=== PATIENT | female | born 1990 | race Two or more races ===

== ENCOUNTER 2020-07-07 12:10 | Inpatient (IN) | payer OTHER ==
[~2020-07-07] VITALS: Ht 154.9 cm; Wt 3.2 kg
[2020-07-07] MEDS ORDERED: PRENATAL TABLE1 EAC3 PO (14:42)
== END 2020-07-10 13:45 | disposition home or self-care (01) | DRG 788 ==
LOC: LDR 12:10 → O/R 12:10 → OB/GYN 07-08 16:31
PROVIDERS: ADMIT Obstetrics & Gynecology; ATTEND Obstetrics & Gynecology
PROC: 10907ZC Drainage of Amniotic Fluid, Therapeutic from Products of Conception, Via Natural or Artificial Opening (ICD-10-PCS; 2020-07-07)
PROC: 4A1HXFZ Monitoring of Products of Conception, Cardiac Rhythm, External Approach (ICD-10-PCS; 2020-07-07)
PROC: 10D00Z1 Extraction of Products of Conception, Low, Open Approach (ICD-10-PCS; principal; 2020-07-07 21:00)
DX: O65.9 Obstructed labor due to maternal pelvic abnormality, unspecified (principal); Z3A.39 39 weeks gestation of pregnancy; Z37.0 Single live birth; Z20.828 Contact with and (suspected) exposure to other viral communicable diseases

== ENCOUNTER 2022-08-12 18:14 | Emergency (ER) | payer OTHER ==
[~2022-08-12] VITALS: Ht 154.9 cm; Wt 57.2 kg
[~2022-08-12 18:14] MED LIST: PRENATAL TABLE1 EAC3 PO
[2022-08-12] MEDS ORDERED: DELSYM COUGH+C180 ML PO (21:26)
== END 2022-08-12 21:57 | disposition home or self-care (01) ==
LOC: ER 18:14
DX: B34.9 Viral infection, unspecified (principal); Z20.822 Contact with and (suspected) exposure to COVID-19

== ENCOUNTER 2022-11-29 09:15 | Inpatient (IN) | payer OTHER ==
[~2022-11-29] VITALS: Ht 154.9 cm; Wt 3.6 kg
[~2022-11-29 09:15] MED LIST changes: +DELSYM COUGH+C180 ML PO
[2022-11-30] MEDS ORDERED: ATABEX OB TABL1 EACH (13:14)
== END 2022-12-02 14:23 | disposition home or self-care (01) | DRG 788 ==
LOC: OB/GYN 09:15 → O/R 15:10 → OB/GYN 17:46
PROVIDERS: ADMIT Obstetrics & Gynecology; ATTEND Obstetrics & Gynecology
PROC: 0DNW0ZZ Release Peritoneum, Open Approach (ICD-10-PCS; 2022-11-29)
PROC: 4A1HXCZ Monitoring of Products of Conception, Cardiac Rate, External Approach (ICD-10-PCS; 2022-11-29)
PROC: 10D00Z1 Extraction of Products of Conception, Low, Open Approach (ICD-10-PCS; principal; 2022-11-29 14:00)
DX: O34.211 Maternal care for low transverse scar from previous cesarean delivery (principal); O36.63X0 Maternal care for excessive fetal growth, third trimester, not applicable or unspecified; O99.892 Other specified diseases and conditions complicating childbirth; N73.6 Female pelvic peritoneal adhesions (postinfective); Z3A.39 39 weeks gestation of pregnancy; Z37.0 Single live birth; Z20.822 Contact with and (suspected) exposure to COVID-19